=== PATIENT | male | born 1990 | race African-American/Black ===

== ENCOUNTER 2016-11-11 21:03 | Emergency (ER) | payer MEDICAID ==
[~2016-11-11] VITALS: Ht 177.8 cm; Wt 68.0 kg
[2016-11-11 22:52] LABS: APPEARANCE,URINE SLIGHTLY CLOUDY; KETONES,URINE 3+ (NEGATIVE); LEUKOCYTE ESTERASE ,URINE 2+ (NEGATIVE); NITRITE,URINE NEGATIVE (NEGATIVE); PH,URINE 6 (4.5-8.0); PROTEIN,URINE 1+ (NEGATIVE); UROBILINOGEN,URINE 1 MG/DL (0.0-1.0)
[2016-11-11 23:02] LABS: BACTERIA,URINE MODERATE /HPF; ICTOTEST NEGATIVE; RBC,URINE 0-2 /HPF (0 - 0); SQUAMOUS EPITHELIAL CELL,UR OCCASIONAL /LPF (NONE/OCC)
[2016-11-11 23:03] LABS: BASOPHILS % (AUTO) 1.1 % (0.0-2.0); EOSINOPHILS % (AUTO) 0.9 % (0.0-3.0); LYMPHOCYTES % (AUTO) 35.2 % (20.0-45.0); MEAN CORPUSCULAR HEMOGLOBIN 31.8 PG (27.0-31.0); MEAN CORPUSCULAR VOLUME 96 FL (80-99); MEAN PLATELET VOLUME 7.9 FL (6.5-10.1); MONOCYTES % (AUTO) 11.5 % (1.0-10.0); NEUTROPHILS % (AUTO) 51.4 % (45.0-75.0); PLATELET COUNT 232 K/UL (150-450); RED BLOOD COUNT 4.59 M/UL (4.70-6.10); RED CELL DISTRIBUTION WIDTH 10.6 % (11.6-14.8)
[2016-11-11 23:17] LABS: ACETAMINOPHEN < 10 ug/mL (10-30); ALANINE AMINOTRANSFERASE 16 U/L (3-41); ALBUMIN/GLOBULIN RATIO 1.6 (1.0-2.7); ALCOHOL < 10 mg/dL; ANION GAP 16 (5-15); ASPARTATE AMINO TRANSFERASE 49 U/L (5-40); CALCIUM 9.5 mg/dL (8.6-10.2); CARBON DIOXIDE 28 mEQ/L (20-30); CHLORIDE 98 mEQ/L (98-107); GLOMERULAR FILTRATION RATE > 60 mL/min (>60); HEMOLYSIS 5; POTASSIUM 3.9 mEQ/L (3.4-4.9); SODIUM 142 mEQ/L (135-145); TOTAL PROTEIN 7.7 g/dL (6.6-8.7)
[2016-11-12] VITALS (8 sets, daily range): BP systolic 103–136; BP diastolic 64–91
--- NOTE | 2016-11-12 00:10 | Emergency Room Report ---
History of Present Illness General Chief Complaint: Behavioral Complaint Source: Patient Present Illness HPI Is a 26-year-old male with a history of psychosis and multiple psychiatric admission. He start any medication. He also uses methamphetamine. He presents with chief complaint of suicidal thoughts. Also with self-harm. He said he was very exhausted and not able to sleep much because he had a binge methamphetamine abuse. He said his room mate was bugging him saying that he would not hurt himself. He got mad and to a razor and slashed his forearms. He said he felt better now. Still hearing voices now and then. Denies any other complaint. Call 911. Allergies: Coded Allergies: No Known Allergies (Unverified , 11/11/16) Patient History Past Medical History: see triage record, old chart reviewed, psych hx Past Surgical History: none Family History: none Social History: drug use, single Immunizations: other Reviewed Nursing Documentation: PMH: Agreed, PSxH: Agreed Nursing Documentation-PMH Past Medical History: No Stated History Review of Systems ENT: Denies: sore throat Cardiovascular: Denies: chest pain, palpitations Gastrointestinal/Abdominal: Denies: diarrhea, nausea, vomiting Musculoskeletal: Denies: back problems Skin: Denies: rash Neurological: Denies: AMANDA, seizures All Other Systems: negative except mentioned in HPI Physical Exam Vital Signs Date Time Temp Pulse Resp B/P Pulse Ox O2 Delivery O2 Flow Rate FiO2 11/11/16 21:50 98.4 100 16 140/87 100 Room Air vitals normal Sp02 EP Interpretation: reviewed, normal General Appearance: alert/responsive, no apparent distress, non-toxic Head: normocephalic, atraumatic Eyes: PERRL, EOMI ENT: oropharynx normal Neck: supple/symm/no masses Respiratory: effort normal, no rhonchi, no wheezing Cardiovascular: no murmur, gallop, rub Gastrointestinal: non-tender, no mass, non-distended, no rebound/guarding, normal bowel sounds Musculoskeletal: gait & station normal, other - Multiple superficial incision And laceration to both forearms. Nothing to be sutured. Neurologic: oriented x3, sensory intact, motor strength/tone normal Skin: no rash, normal palpation Medical Decision Making Diagnostic Impression: Primary Impression: Suicidal ideations Additional Impressions: UTI (urinary tract infection) Qualified Codes: N30.00 - Acute cystitis without hematuria Methamphetamine abuse Psychosis Qualified Codes: F23 - Brief psychotic disorder Laceration of forearm, right Qualified Codes: S51.811A - Laceration without foreign body of right forearm, initial encounter Laceration of forearm, left Qualified Codes: S51.812A - Laceration without foreign body of left forearm, initial encounter ER Course Patient with self-harm from laceration. Superficial. He said that he is suicidal. He's talkative and playful. No evidence of intoxication. Last use of drugs was yesterday. Nothing to be sutured. We'll get PET evaluation. Lab Results Impression labs unremarkable Last Vital Signs Date Time Temp Pulse Resp B/P Pulse Ox O2 Delivery O2 Flow Rate FiO2 11/11/16 21:50 98.4 100 16 140/87 100 Room Air Status: improved Disposition: XFER TO PSYCH HOSP/UNIT Condition: Stable Referrals: NON PHYSICIAN (PCP) DALTON MORROW M.D. Nov 12, 2016 00:10
[2016-11-12] MEDS ORDERED: Cephalexin 500mg cap ORAL ONE (00:15)
[2016-11-12] MEDS ORDERED: ZYPREXA2.5 MG ORAL (00:19)
[2016-11-12] MEDS ORDERED: DEPAKOTE250 MG PO (00:19)
== END 2016-11-12 22:55 ==
LOC: EDBD 21:03 → EMR 22:58
DX: R45.851 Suicidal ideations (principal); N30.00 Acute cystitis without hematuria; F15.10 Other stimulant abuse, uncomplicated; F23 Brief psychotic disorder; S51.811A Laceration without foreign body of right forearm, initial encounter; S51.812A Laceration without foreign body of left forearm, initial encounter; X78.8XXA Intentional self-harm by other sharp object, initial encounter; Y93.9 Activity, unspecified; Y92.9 Unspecified place or not applicable
CPT/HCPCS: 36415; 80053; 80300; 80329; 81003; 85025; 87086; 99285